=== PATIENT | male | born 1960 | race Caucasian/White ===

== ENCOUNTER → 2024-05-18 | Outpatient (REF) | payer MEDICARE, OTHER ==
[~2024-05-18] MED LIST: CLOPIDOGREL75 MG PO; LACTATED RINGER'S 0 ML ONE; LAMOTRIGINE100 MG PO; LIPITOR20 MG PO; LISINOPRIL20 MG PO; SERTRALINE HCL50 MG PO; SUBOXONE 8 MG-1 EAC2 TOP
[2024-05-18 10:33] LABS: BASOPHILS # (AUTO) 0.1 (0.0-0.1); BASOPHILS % 0.7 % (0.0-1.0); EOSINOPHILS # (AUTO) 0.3 (0.0-0.4); EOSINOPHILS % 2.5 % (0.0-6.0); HEMATOCRIT 44.8 % (38.2-49.6); HEMOGLOBIN 14.9 g/dL (14.0-18.0); LYMPHOCYTES # (AUTO) 3.1 (1.0-3.2); LYMPHOCYTES % 30.4 % (18.0-39.1); MEAN CORPUSCULAR HEMOGLOBIN 31.2 pg (28-32); MEAN CORPUSCULAR HGB CONC 33.3 g/dL (31-35); MEAN CORPUSCULAR VOLUME 93.7 fL (81-99); MONOCYTES # (AUTO) 0.8 (0.2-0.8); MONOCYTES % 7.9 % (4.4-11.3); NEUTROPHILS # (AUTO) 5.8 (2.1-6.9); NEUTROPHILS % 58.2 % (38.7-80.0); PLATELET COUNT 288 x10e3/uL (140-360); RED BLOOD COUNT 4.78 x10e6/uL (4.3-5.7); RED CELL DISTRIBUTION WIDTH 14.1 % (11.7-14.4); WHITE BLOOD COUNT 10.02 x10e3/uL (4.8-10.8)
== END | disposition home or self-care (01) ==
LOC: RAD 05:00 → OR 05-25 05:56 → EDSTATUS 05-25 07:30
PROVIDERS: ATTEND Internal Medicine Gastroenterology
DX: Z12.11 Encounter for screening for malignant neoplasm of colon (principal); Z01.810 Encounter for preprocedural cardiovascular examination; Z01.812 Encounter for preprocedural laboratory examination; Z53.8 Procedure and treatment not carried out for other reasons
CPT/HCPCS: 36415; 85025; 93005